=== PATIENT | female | born 1975 | race Caucasian/White ===

== ENCOUNTER → 2022-06-18 | Outpatient (CLI) | payer BC ==
[~2022-06-18] MED LIST: CEPH500 PO; HYDACE5 PO; Omeprazole20 M1
[2022-06-19 15:11] LABS: HPV 16 Negative (Negative); HPV 18 Negative (Negative); HPV OTHER HR TYPES Negative (Negative)
== END | disposition home or self-care (01) ==
LOC: LAB 15:20 → LAB SHORT 15:20
PROVIDERS: Obstetrics & Gynecology
DX: Z12.4 Encounter for screening for malignant neoplasm of cervix (principal)
CPT/HCPCS: 87624; G0145